=== PATIENT | female | born 1990 | race Hispanic/Latino ===

== ENCOUNTER 2024-06-26 05:31 | Inpatient (IN) | payer BC, SELFPAY ==
[2024-06-25 12:01] LABS: #Basophils Less than 0.03 10x3/uL (0.0-0.2); #Eosinophils Less than 0.03 10x3/uL (0.0-0.5); #Monocytes 0.56 10x3/uL (0.0-1.1); #Neutrophils 5.95 10x3/uL (1.5-8.4); %Basophils 0.2 % (0.0-2.0); %Eosinophils 0.2 % (0.0-6.0); %Lymphocytes 18.5 % (18.0-47.0); %Monocytes 6.9 % (0.0-10.0); %Neutrophils 73.8 % (40.0-75.0); Hematocrit 33.4 % (34.9-44.5); Hemoglobin 10.6 g/dL (12.0-15.5); Mean Corpuscular HGB CONC 31.7 g/dL (32.0-36.0); Mean Corpuscular Hemoglobin 26.2 pg (27.0-33.0); Mean Corpuscular Volume 82.7 fL (81.6-98.3); Mean Platelet Volume 9.2 fL (7.4-10.4); Platelet Count 356 10x3/uL (150-450); RBC Distribution Width 22.5 % (11.5-14.5); Red Blood Cell (RBC) Count 4.04 10x6/uL (3.90-5.03); White Blood Cell (WBC) Count 8.07 10x3/uL (3.5-10.5)
[2024-06-25 12:41] LABS: HBsAg Index 0.24 S/CO (0-0.99); HIV (1/2) Antibody/Antigen Non-Reactive (NonReactive); HIV 1/2 INDEX 0.11 S/CO (<1.00); Hep B Surf Ag Non-Reactive S/CO (NonReactive)
[2024-06-25 12:42] LABS: Syphilis Antibody Nonreactive (Nonreactive); Syphilis Antibody Index 0.06 S/CO (<1.00 Non-Reactive)
[~2024-06-26 05:31] MED LIST: Bicitra 30 ML UDCUP PO PRN; Oxytocin 30 units/NS 500 ML 500 ML IV SCH; Promethazine HCl 25 MG/ML VIAL IM PRN; hydrALAZINE 20 MG/ML VIAL SLOW IVP PRN
[2024-06-26 06:37] VITALS: BMI 34.4
[2024-06-26] MEDS: CEFAZOLIN 2 GM in Sodium Chloride 0.9% 100 ML IVPB SCH (06:54)
[2024-06-26] MEDS ORDERED: Promethazine HCl 25 MG/ML VIAL IM PRN (07:15)
[2024-06-26] MEDS ORDERED: Communication Order-Pharmacy FS SCH (07:15)
[2024-06-26] MEDS ORDERED: Meperidine HCl/PF 25 MG (1 mL) VIAL SLOW IVP PRN (07:15)
[2024-06-26] MEDS ORDERED: diphenhydrAMINE 50 MG/ML VIAL IVP PRN (07:15)
[2024-06-26] MEDS ORDERED: Ondansetron PF 4 MG/2 ML Vial IVP PRN (07:15)
[2024-06-26] MEDS ORDERED: fentaNYL 50 mcg/mL 1 mL Vial SLOW IVP PRN (07:15)
[2024-06-26] MEDS ORDERED: HYDROmorphone 0.5 MG/0.5 ML SYRINGE SLOW IVP PRN (07:15)
[2024-06-26] MEDS ORDERED: Naloxone HCl 0.4 mg/ml Vial IVP PRN ×2 (07:15)
[2024-06-26] MEDS ORDERED: Naloxone HCl 0.4 mg/ml Vial IV PRN (07:15)
[2024-06-26] MEDS ORDERED: Moisturizing Cream (Eucerin) 113 GM JAR TOP PRN (07:15)
[2024-06-26] MEDS: Famotidine/PF 20 mg/2ml Vial SLOW IVP PRN (07:24)
[2024-06-26] MEDS ORDERED: hydrALAZINE 20 MG/ML VIAL SLOW IVP PRN (08:50)
[2024-06-26] MEDS ORDERED: Boostrix 0.5 ML (Tdap) VIAL (>/=7 yrs of age) IM ONE (09:30)
[2024-06-26] MEDS: Methylergonovine 0.2 MG TAB PO SCH (10:57)
[2024-06-26] MEDS: Ondansetron PF 4 MG/2 ML Vial IVP PRN ×2 (13:07→19:38)
[2024-06-26] MEDS: Ketorolac Tromethamine 30 MG (1 mL) VIAL IVP PRN (15:36)
[2024-06-26] MEDS ORDERED: Meperidine HCl/PF 25 MG (1 mL) VIAL IM PRN (19:15)
[2024-06-26] MEDS: Morphine PF 10 MG/10 ML VIAL ONE (20:00)
[2024-06-26] MEDS: Dexamethasone 10 MG/ML VIAL ONE (20:00)
[2024-06-26] MEDS: Dexmedetomidine 200 MCG/2 ML VIAL ONE (20:00)
[2024-06-26] MEDS: Phenylephrine 40 MG/NS 250 ML 250 ML ONE (20:00)
[2024-06-26] MEDS: Ondansetron PF 4 MG/2 ML Vial ONE ×2 (20:00→20:01)
[2024-06-26] MEDS: Ketorolac Tromethamine 30 MG (1 mL) VIAL ONE (20:01)
[2024-06-26] MEDS: Erythromycin Base 0.5% Oint 1 GM TUBE ONE (20:01)
[2024-06-26] MEDS: Oxytocin 10 UNITS/ML VIAL ONE (20:01)
[2024-06-26] MEDS: Docusate 100 MG CAP PO SCH (20:02)
[2024-06-26] MEDS: Phytonadione Neonatal 1 MG/0.5 ML AMP ONE (20:02)
[2024-06-26] MEDS: Hepatitis B Vaccine 10 MCG/0.5 ML SYR ONE (20:02)
[2024-06-27] MEDS: Simethicone Chewable 80 MG TAB PO PRN (04:59)
[2024-06-27 05:44] LABS: Hematocrit 28.5 % (34.9-44.5); Hemoglobin 8.9 g/dL (12.0-15.5); Mean Corpuscular HGB CONC 31.2 g/dL (32.0-36.0); Mean Corpuscular Hemoglobin 26.3 pg (27.0-33.0); Mean Corpuscular Volume 84.1 fL (81.6-98.3); Mean Platelet Volume 9.3 fL (7.4-10.4); Platelet Count 306 10x3/uL (150-450); RBC Distribution Width 21.5 % (11.5-14.5); Red Blood Cell (RBC) Count 3.39 10x6/uL (3.90-5.03); White Blood Cell (WBC) Count 12.24 10x3/uL (3.5-10.5)
[2024-06-27] MEDS: Prenatal Vitamin 1 TAB PO SCH (08:34)
[2024-06-27] MEDS: HYDROcodone/Acetaminophen 5/325 mg Tablet PO PRN (14:17)
[2024-06-27] MEDS: Ibuprofen 800 MG TAB PO SCH (21:26)
[2024-06-28 07:56] VITALS: BP 96/54; TEMP 98.6
[2024-06-28] MEDS: Prenatal Vitamin 1 TAB PO SCH (08:15)
[2024-06-28] MEDS: traMADol HCl 50 MG TAB PO PRN (08:26)
== END 2024-06-28 12:00 | disposition home or self-care (01) | DRG 788 ==
LOC: CSHLD 05:31 → CSHPP 11:35
PROVIDERS: ADMIT Obstetrics & Gynecology; ATTEND Obstetrics & Gynecology
PROC: 10D00Z1 Extraction of Products of Conception, Low, Open Approach (ICD-10-PCS; principal; 2024-06-26)
PROC: 3E033XZ Introduction of Vasopressor into Peripheral Vein, Percutaneous Approach (ICD-10-PCS; 2024-06-26)
DX: O40.3XX0 Polyhydramnios, third trimester, not applicable or unspecified (principal); O76 Abnormality in fetal heart rate and rhythm complicating labor and delivery; Z3A.38 38 weeks gestation of pregnancy; Z37.0 Single live birth
CPT/HCPCS: 36415; 51702; 85025; 85027; 86780; 86850; 86900; 86901; 87340; 87389; J1100; J1885; J2274; J2405; J2590; J3490